=== PATIENT | male | born 1990 | race Caucasian/White ===

== ENCOUNTER → 2022-12-23 13:34 | Outpatient (BNVA) | payer OTHER, SELFPAY | PROVIDERS: Visit Provider Internal Medicine | DX: S29.012A Strain of muscle and tendon of back wall of thorax, initial encounter (principal); S46.819A Strain of other muscles, fascia and tendons at shoulder and upper arm level, unspecified arm, initial encounter; X50.0XXA Overexertion from strenuous movement or load, initial encounter | CPT/HCPCS: 99203 ==

== ENCOUNTER → 2022-12-29 09:20 | Outpatient (BNVA) | payer OTHER, SELFPAY | PROVIDERS: Visit Provider Physician Assistant Medical | DX: S29.012A Strain of muscle and tendon of back wall of thorax, initial encounter (principal); S46.819A Strain of other muscles, fascia and tendons at shoulder and upper arm level, unspecified arm, initial encounter; X50.0XXA Overexertion from strenuous movement or load, initial encounter | CPT/HCPCS: 99213 ==

== ENCOUNTER → 2023-01-02 15:32 | Outpatient (BNVA) | payer OTHER, SELFPAY | PROVIDERS: Visit Provider Internal Medicine | DX: M54.50 Low back pain, unspecified (principal) | CPT/HCPCS: 99213 ==

== ENCOUNTER → 2023-01-09 09:15 | Outpatient (BNVA) | payer SELFPAY | PROVIDERS: Visit Provider Internal Medicine | DX: S29.012A Strain of muscle and tendon of back wall of thorax, initial encounter (principal); S46.819A Strain of other muscles, fascia and tendons at shoulder and upper arm level, unspecified arm, initial encounter; X50.0XXA Overexertion from strenuous movement or load, initial encounter | CPT/HCPCS: 99213 ==

== ENCOUNTER → 2023-09-21 14:12 | Outpatient (BNVA) | payer OTHER, SELFPAY | PROVIDERS: Visit Provider Physician Assistant Medical | DX: K42.9 Umbilical hernia without obstruction or gangrene (principal) | CPT/HCPCS: 99202 ==

== ENCOUNTER 2023-09-30 14:33 | Outpatient (AMB) | payer OTHER, SELFPAY ==
[2023-09-30 14:40] VITALS: BP 143/79; PULSE 94; BMI 33.8
--- NOTE | 2023-09-30 14:40 | A.OFFVIS_ITS ---
Intake Vital Signs 09/30/23 14:40 Height 5 ft 9 in Weight 229 lb BMI 33.8 BP 143/79 H Blood Pressure Location Rt brachial Position Sitting Pulse 94 Intake Visit Reasons: Umbilical hernia Intake Note: Patient referred by Dr. Reed for Umbilical hernia. [facility] US dated Patient c/o: first noticed 09-14-23. Pain worse on Rt abd. 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 It is increasing in size, become more symptomatic. He wished to have this repaired. He has no other GI issues or complaints. He has tolerating a diet. Having regular bowel habits. He has never had such a abdominal wall symptoms before. Chart was reviewed and patient evaluated Physical Exam Vital Signs: Last Vital Signs Pulse 94 09/30/23 14:40 BP 143/79 H 09/30/23 14:40 BMI result Body Mass Index 33.8 Chest Other: Chest breath sounds bilaterally, HS 1 in 2 GI Other: Moderately corpulent abdomen. Patient was examined both supine and standing with Valsalva. Bilateral groin exam negative. Genitalia within normal limits. Approximate 2 cm irreducible/incarcerated umbilical hernia. Very tender to palpation. No evidence of any overlying erythema. Assessment & Plan Assessment & Plan (1) Incarcerated umbilical hernia: Code(s): K42.0 - Umbilical hernia with obstruction, without gangrene Plan Risks, benefits, alternatives of concussion umbilical hernia repair open technique with mesh were reviewed with the patient and included but not limited to bleeding, infection, recurrence, numbness, pain, scarring and the patient wished to proceed. All questions answered. Arrangements were made for this. Coding Level of Care Code New Pt Level 5 (77025) Diagnoses Incarcerated umbilical hernia K42.0
== END 2023-09-30 14:52 | disposition home or self-care (01) ==
PROVIDERS: Referring Provider Internal Medicine; Visit Provider Surgery
DX: K42.0 Umbilical hernia with obstruction, without gangrene (principal)
CPT/HCPCS: 99204

== ENCOUNTER → 2023-09-30 14:33 | Outpatient (BNVA) | payer OTHER, SELFPAY | PROVIDERS: Referring Provider Internal Medicine; Visit Provider Surgery | DX: K42.0 Umbilical hernia with obstruction, without gangrene (principal) | CPT/HCPCS: 99202 ==

== ENCOUNTER 2023-10-23 09:31 | Day surgery (SDC) | payer OTHER, SELFPAY ==
[2023-10-21 10:49] VITALS: BMI 33.8
--- NOTE | 2023-10-22 16:24 | MHC.SHP ---
Pre-Procedural Eval Section A - 24 Hr Update-Section A only Date of Service: 10/22/23 The patient is an INPATIENT: No Changes since office visit: No Cold of Flu in the past 2 weeks, No New Medical Problems, No Changes in Medication and No Patient answered all questions The patient has been examined within 24 hours of the surgical procedure. The History & Physical has been completed within 30 days and I have reviewed it.: Yes Section B - Complete if H&P > 30 days Chief Complaint: Umbilical hernia with obstruction, without gangren Allergies: Allergies Allergy/AdvReac Type Severity Reaction Status Date / Time No Known Allergies Allergy Verified 09/30/23 14:42 Plan I have reviewed the history and physical and performed a pertinent physical examination on my patient. No changes have occurred unless specified. Time Spent With Patient Time: Total time managing care of this patient today ____ minutes.
--- NOTE | 2023-10-22 16:55 | P.OP_ITS ---
Operative Note Operative Note Date of Service: 10/23/23 Narrative: Preoperative diagnosis: [] Incarcerated umbilical hernia Postop diagnosis: [] The same Procedure [] open repair of incarcerated umbilical hernia with Bard mesh Surgeon: [] Timmy Buddhist Monk: [] Jacoby Type of Anesthesia: [] MAC Indication for surgery: [] apProximally 2 cm incarcerated umbilical hernia with omental contents. Moderately corpulent abdomen. Findings: [] Patient brought to the operating room, placed on operative table in supine position, after an adequate level of MAC anesthesia was induced, the patient's abdomen was prepped and draped in usual sterile fashion. Using an infraumbilical incision, this carried down through skin, subcutaneous tissue, where hernia sac was identified and circumferentially dissected down the fascia and dissected off the back of the umbilicus. Sac was opened with incarcerated omental contents and sac amputated. Proximally 2 cm defect was circumferentially cleared. A Bard mesh was placed in this defect, and the superficial layer of the mesh was circumferentially sutured to the surrounding fascia using interrupted 0 Ethibond suture. At completion of procedure, mesh was in good very good position with no gaps or tension. Wound was irrigated, secured hemostasis. It Was closed in the following manner; posterior aspect of the umbilicus was tacked to the wound floor using interrupted 3-0 Vicryl sutures. Skin was closed using interrupted inverted dermal 3-0 Vicryl sutures followed by Steri-Strips and sterile dressings. Wound was infiltrated to beginning at the end of the case with 0.5% Marcaine/1 % lidocaine. Sponge, needle, and instrument counts were reported correct. Patient tolerated the procedure well and emerged from anesthesia stable condition. EBL minimal
[2023-10-23] VITALS (9 sets, daily range): BP systolic 107–138; BP diastolic 64–80; PULSE 58–79; RESP 12–16; TEMP 36.8–37; O2SAT 94–97; BMI 34.7
[2023-10-23] MEDS: Lactated Ringers 1,000 ML 100 ML IVCONT (10:33)
--- NOTE | 2023-10-23 10:35 | HO.ANESPROP2 ---
Documented by User: Natalya Upton NP 10/21/23 14:33 HPI - Anesthesia Eval Consult details Narrative: 33yo M for OPEN Incarcerated Hernial Umbilical with mesh PMFSH Active Problems Active Problems: All Active Problems (Updated 10/21/23 @ 10:51 by Brandie Huang RN) Incarcerated umbilical hernia (Acute) Past Medical History Medical History (Updated 10/21/23 @ 10:49 by Brandie Huang RN) Incarcerated umbilical hernia Surgical History Surgical History (Updated 10/23/23 @ 10:14 by Marissa Haro RN) Hx of esophagogastroduodenoscopy History of facial surgery Social History Social History Patient Tobacco Use Status: Never used Tobacco Use of substances other than those prescribed or required for medical reasons: No Are you DNR?: No Advance Directives: No Advance Directives Information Provided: Yes Meds Allergies Allergy/AdvReac Type Severity Reaction Status Date / Time No Known Allergies Allergy Verified 10/23/23 10:11 Exam Height,Weight and Vital Signs: Height 5 ft 9 in Weight 103.873 kg Assessment and Plan Assessment Anesthesia Assessment: Chart Reviewed Documented by User: Thao Davila DO 10/23/23 10:37 PMFSH Past Medical History Medical History (Updated 10/21/23 @ 10:49 by Brandie Huang RN) Incarcerated umbilical hernia Family History Family history of problems with anesthesia: No Surgical History Surgical History (Updated 10/23/23 @ 10:14 by Marissa Haro RN) Hx of esophagogastroduodenoscopy History of facial surgery History of Problems with Anesthesia: No Social History Social History Patient Tobacco Use Status: Never used Tobacco Use of substances other than those prescribed or required for medical reasons: No Are you DNR?: No Advance Directives: No Advance Directives Information Provided: Yes Meds Allergies Allergy/AdvReac Type Severity Reaction Status Date / Time No Known Allergies Allergy Verified 10/23/23 10:11 Exam Exam Date and Time: October 23, 2023 1035 Height,Weight and Vital Signs: Height 5 ft 9 in Weight 103.873 kg Height 5 ft 9 in Weight 106.594 kg Vital Signs Temperature 98.6 F 10/23/23 10:17 Pulse Rate 79 10/23/23 10:17 Respiratory Rate 16 10/23/23 10:17 Blood Pressure 138/80 10/23/23 10:17 Pulse Oximetry 94 10/23/23 10:17 Oxygen Delivery Method Room Air 10/23/23 10:17 Temperature 98.6 F 10/23/23 10:17 Pulse Rate 79 10/23/23 10:17 Respiratory Rate 16 10/23/23 10:17 Blood Pressure 138/80 10/23/23 10:17 Pulse Oximetry 94 10/23/23 10:17 Oxygen Delivery Method Room Air 10/23/23 10:17 Airway Mallampati Class: II TM Dist: >3cm Neck ROM: Full Loose/Missing/Broken Teeth: No Heart: S1S2 Lungs: CTAB Assessment and Plan Assessment Anesthesia Assessment: Anesthesia Plan Discussed and Chart Reviewed Final Anesthetic Review Family History of Problems with Anesthesia: No History of Problems with Anesthesia: No NPO: Yes ASA Class: I Final Preanesthetic Review: No Changes in Pt Med Stat, Meds/Allgs Chart Reviewed, Consent Obtained/Reviewed and Anes Risks/Benef Reviewed Patient Risk: Low Procedure Risk: Low Anesthetic Plan Anesthetic Plan: MAC: and Agree w/ Assess. and Plan Disposition: Standard PACU
[2023-10-23] MEDS: oxyCODONE HCl Immed Release 5 MG TABLET 10 MG PO (11:47)
[2023-10-23] MEDS: fentaNYL citrate/PF 100 MCG/2 ML VIAL 50 MCG IVPUSH ×2 (11:47→11:59)
== END 2023-10-23 13:20 | disposition home or self-care (01) ==
LOC: HO.SSS 09:31
PROVIDERS: PCP Pediatrics; Visit Provider Surgery
PROC: (CPT 49592; principal; 2023-10-23 11:00)
DX: K42.0 Umbilical hernia with obstruction, without gangrene (principal)
CPT/HCPCS: 49592; 88304; C1781; J0690; J1100; J1885; J2250; J2405; J2704; J2795; J3010

== ENCOUNTER → 2023-10-23 09:31 | Outpatient (BNV) | payer OTHER, SELFPAY | PROVIDERS: PCP Pediatrics; Visit Provider Surgery | DX: K42.0 Umbilical hernia with obstruction, without gangrene (principal) | CPT/HCPCS: 49592 ==

== ENCOUNTER 2023-11-02 11:29 | Outpatient (AMB) | payer OTHER, SELFPAY ==
[2023-11-02 11:34] VITALS: BP 147/86; PULSE 98
--- NOTE | 2023-11-02 11:34 | MHC.OFFVIS ---
Intake Vital Signs 11/02/23 11:34 Weight 233 lb BP 147/86 H Blood Pressure Location Rt brachial Position Sitting Pulse 98 Intake Visit Reasons: S/P umbilical hernia w/mesh Intake Note: Patient here s/p umbilical hernia w/mesh repair. Reports incisions healing well. Patient c/o: steri strips fell off, itch. Sx: 10-23-23. Top Spotter Required: No Accompanied by: Self / Same As Patient Allergies No Known Allergies Allergy (Verified 11/02/23 11:35) HPI HPI Comments History of Present Illness Details Patient presents for follow-up. He has no wound issues or complaints. He has tolerating a diet. He is having regular bowel habits. He is ambulating with minimal assistance. He has not done any heavy lifting , as instructed. [facility] Surgical History Incarcerated umbilical hernia (10/23/23) Hx of esophagogastroduodenoscopy History of facial surgery Social History Patient Tobacco Use Status: Never used Tobacco Physical Exam Vital Signs: Last Vital Signs Pulse 98 11/02/23 11:34 BP 147/86 H 11/02/23 11:34 GI Other: Abdomen is soft. Wound clean dry and intact. Assessment & Plan Assessment & Plan (1) Status post hernia repair: Code(s): Z98.890 - Other specified postprocedural states; Z87.19 - Personal history of other diseases of the digestive system Plan Patient has been given local instructions, and will follow-up p.r.n.. We will have him commence work where he does very significant heavy lifting in 1 month's time with 2 weeks light duty when he starts. Coding Level of Care Code Global (91709) Diagnoses Status post hernia repair Z98.890; Z87.19
== END 2023-11-02 11:46 | disposition home or self-care (01) ==
LOC: HO.HGS 11:30
PROVIDERS: PCP Pediatrics; Visit Provider Surgery
DX: Z09 Encounter for follow-up examination after completed treatment for conditions other than malignant neoplasm (principal); K42.0 Umbilical hernia with obstruction, without gangrene
CPT/HCPCS: 99212

== ENCOUNTER → 2023-11-02 11:30 | Outpatient (BNVA) | payer OTHER, SELFPAY | PROVIDERS: PCP Pediatrics; Visit Provider Surgery | DX: Z09 Encounter for follow-up examination after completed treatment for conditions other than malignant neoplasm (principal); Z87.19 Personal history of other diseases of the digestive system | CPT/HCPCS: 99212 ==

== ENCOUNTER → 2024-01-20 08:40 | Outpatient (BNVA) | payer OTHER, SELFPAY | PROVIDERS: PCP Pediatrics; Visit Provider Internal Medicine | DX: N50.812 Left testicular pain (principal) | CPT/HCPCS: 76870; 93975; 99203 ==

== ENCOUNTER → 2024-01-25 10:11 | Outpatient (BNVA) | payer OTHER, SELFPAY | PROVIDERS: PCP Pediatrics | DX: Z02.6 Encounter for examination for insurance purposes (principal) ==

== ENCOUNTER 2024-01-27 08:32 | Outpatient (AMB) | payer OTHER, SELFPAY ==
--- NOTE | 2024-01-27 08:39 | MHC.OFFVIS ---
Vital Signs 01/27/24 08:40 Weight 233 lb BP 136/77 Blood Pressure Location Rt brachial Position Sitting Pulse 67 Intake Visit Reasons: Hernia Intake Note: Patient here to discuss new hernia. HX of incarcerated umbilical hernia repair on 10-23-23. Patient c/o: lower abdominal pain. 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 He was doing heavy lifting approximate week or so ago at his place of employment and developed right groin severe pain and a lump. Because of persistence of symptoms, he presents here for further evaluation. Patient is known to me from the past. Incidentally, patient was also to be seen by Urology for unrelated issues of varicocele and epididymal cyst. Chart was reviewed and patient evaluated [facility] Surgical History Incarcerated umbilical hernia (10/23/23) Hx of esophagogastroduodenoscopy History of facial surgery Social History Patient Tobacco Use Status: Never used Tobacco Physical Exam Vital Signs: Last Vital Signs Pulse 67 01/27/24 08:40 BP 136/77 01/27/24 08:40 Chest Other: Chest breath sounds bilaterally, HS 1 in 2 GI Other: Patient was examined both supine and standing with Valsalva. Abdomen mildly corpulent, benign. Status post inguinal hernia repair well healed. Left groin negative. Genitalia grossly within normal limits. Reducible moderately sized right inguinal hernia Assessment & Plan Assessment & Plan (1) Right inguinal hernia: Code(s): K40.90 - Unilateral inguinal hernia, without obstruction or gangrene, not specified as recurrent Category: Surgical Plan Patient would like to undergo repair of his symptomatic right inguinal hernia. Risks, benefits, alternatives of open right inguinal hernia repair with mesh were reviewed with the patient included but not limited to bleeding, infection, recurrence, numbness, pain, scarring and the patient was to proceed. All questions answered. Arrangements were made for this. Coding Level of Care Code New Pt Level 5 (38560) Diagnoses Right inguinal hernia K40.90
[2024-01-27 08:40] VITALS: BP 136/77; PULSE 67
== END 2024-01-27 08:47 | disposition home or self-care (01) ==
LOC: HO.HGS 08:32
PROVIDERS: PCP Pediatrics; Visit Provider Surgery
DX: K40.90 Unilateral inguinal hernia, without obstruction or gangrene, not specified as recurrent (principal)
CPT/HCPCS: 99214

== ENCOUNTER → 2024-01-27 08:32 | Outpatient (BNVA) | payer BC, SELFPAY | PROVIDERS: PCP Pediatrics; Visit Provider Surgery | DX: K40.90 Unilateral inguinal hernia, without obstruction or gangrene, not specified as recurrent (principal) | CPT/HCPCS: 99212 ==

== ENCOUNTER 2024-03-09 10:09 | Outpatient (AMB) | payer BC, SELFPAY ==
--- NOTE | 2024-03-09 10:14 | MHC.OFFVIS ---
Intake Visit Reasons: vericocele/hydrocele/Low Testosterone/Erectile Dys Intake Note: Patient is present for vericocele/hydrocele/low testosterone,erectile dys Urology Medication:none Antibiotic Allergy:none Blood Thinner:none Certified Medical Records Coder Required: No Allergies No Known Allergies Allergy (Verified 03/09/24 10:16) HPI Comments Details: Thierry is a pleasant male. He is a patient of Dr. Barrera. He is seen for the following urologic conditions. - varicocele - male infertility - premature ejaculation Varicocele Upcoming left inguinal hernia repair Has right epididymal cyst on ultrasound which is stable Moderate varicocele on ultrasound Clinically grade 1 varicocele No associated continuous pain Discussed role of varicocele in male infertility. One in 6 men have a clinical varicocele. Only 1 in 6 of these suffer from infertility. Male fertility Has been trying to conceive with girlfriend They do not use any timing information such as basal temperature monitoring Printed information provided regarding estrogen cycle and days of ovulation He also only recently stopped marijuana use Premature ejaculation Progressive States he only lasts for 1-2 minutes with vaginal penetration Discussed treatment with either threshold masturbation techniques and or [place] duration for penile numbing Would like to try on demand Cialis which can also be useful PFSH Surgical History Incarcerated umbilical hernia (10/23/23) Hx of esophagogastroduodenoscopy History of facial surgery Social History Patient Tobacco Use Status: Never used Tobacco Review of Systems Const Denies chills and Denies fever(s) Card Reports no additional complaints and Denies syncope Resp Denies cough GI Denies abdominal pain and Denies heartburn Reports as per HPI and Denies change in libido Neuro Denies syncope Psych Denies change in libido Endo Denies change in libido Physical Exam Const General: cooperative, healthy appearing, comfortable and no acute distress Orientation/consciousness: patient oriented x3 HEENT Face and sinus: Yes normal facial exam Mouth: moist mucous membranes Neck Neck: Yes normal visual inspection, Yes full ROM and Yes trachea midline Chest Chest palpation & inspection: normal inspection of the chest Resp Effort & Inspection: normal respiratory effort, able to speak in complete sentences and no respiratory distress GI Inspection: Yes normal to inspection Back/Spine/Pelvis Cervical Spine: normal cervical lordosis Thoracic/Lumbar Spine: thoracic and lumbar spine normal to inspection Skin General skin exam: no rashes or lesions noted Neuro General: patient oriented x3, gait normal, tone normal and moves all extremities Extrem General: Yes normal to inspection and Yes capillary refill normal Assessment & Plan Assessment & Plan (1) Premature ejaculation: Code(s): F52.4 - Premature ejaculation Category: Medical (2) Male infertility: Code(s): N46.9 - Male infertility, unspecified Category: Medical (3) Varicocele: Code(s): I86.1 - Scrotal varices Category: Medical Plan Three month follow-up labs Trial tadalafil on demand Orders: Orders Testosterone, Free/Total 3 Months N46.9 - Male infertility, unspecified Medications: New tadalafil as needed 10 mg PO ONCE 30 days PRN 30 tabs 1RF sexual activity F52.4 - Premature ejaculation, N52.9 - Male erectile dysfunction, unspecified Patient Instructions: Imaging studies, laboratory and physical exam results were discussed and reviewed in detail. No major barriers to patient understanding were identified. An opportunity to ask questions regarding the treatment plan was provided. All questions were answered. The patient expressed understanding and agreement with the above treatment plan. The patient is aware they should contact our office by phone for worsening of their current condition or the appearance of new urologic symptoms. Compliance is encouraged with any medications and followup testing that is ordered. It is a privilege to participate in the urologic care of your patient. If you have any questions or concerns regarding treatment for the above conditions, or other urologic issues, please do not hesitate to contact me. The office telephone contact is [phone]. This note is constructed using voice recognition software. While every effort has been made to ensure accuracy dining car waiter/waitress errors may have been included. Yours sincerely, Dr Valerio Jenkins MD, [facility] - Urology Providers of Expert, Compassionate Care for the Genitourinary System Coding Level of Care Code New Pt Level 4 (44010) Diagnoses Premature ejaculation F52.4 Male infertility N46.9 Varicocele I86.1
== END 2024-03-09 10:45 | disposition home or self-care (01) ==
PROVIDERS: PCP Pediatrics; Visit Provider Urology
DX: F52.4 Premature ejaculation (principal); N46.9 Male infertility, unspecified; I86.1 Scrotal varices
CPT/HCPCS: 99204

== ENCOUNTER → 2024-03-09 10:09 | Outpatient (BNVA) | payer BC, SELFPAY | PROVIDERS: PCP Pediatrics; Visit Provider Urology ==

== ENCOUNTER 2024-03-17 08:02 | Day surgery (SDC) | payer OTHER, BC, SELFPAY ==
[2024-03-15 10:44] VITALS: BMI 34.0
--- NOTE | 2024-03-15 14:15 | HO.ANESPROP2 ---
Documented by User: Natalya Upton NP 03/15/24 14:15 HPI - Anesthesia Eval Consult details Narrative: 34yo M for Right Open Hernia Inguinal Reducible with mesh s/p umbilical hernia 10/2023 with TIVA PMFSH Active Problems Active Problems: All Active Problems Premature ejaculation (Acute) Male infertility (Acute) Varicocele (Acute) Right inguinal hernia (Acute) Testicle pain (Acute ~01/19/24) Status post hernia repair (Acute) Incarcerated umbilical hernia (Acute 10/23/23) Past Medical History Medical History Left varicocele Anxiety ADHD (attention deficit hyperactivity disorder) Epididymal cyst GERD (gastroesophageal reflux disease) Family History Family history of problems with anesthesia: No Surgical History Surgical History Hx of esophagogastroduodenoscopy History of facial surgery Incarcerated umbilical hernia (10/23/23) History of Problems with Anesthesia: No Social History Social History Patient Tobacco Use Status: Never used Tobacco Use of substances other than those prescribed or required for medical reasons: No Are you DNR?: No Advance Directives: No Advance Directives Information Provided: Yes Meds Allergies Allergy/AdvReac Type Severity Reaction Status Date / Time No Known Allergies Allergy Verified 03/17/24 08:17 Exam Height,Weight and Vital Signs: Height 5 ft 9 in Weight 104.326 kg Assessment and Plan Assessment Anesthesia Assessment: Chart Reviewed Final Anesthetic Review Family History of Problems with Anesthesia: No History of Problems with Anesthesia: No Documented by User: Anju Keith MD 03/17/24 11:32 PMFSH Past Medical History Medical History Left varicocele Anxiety ADHD (attention deficit hyperactivity disorder) Epididymal cyst GERD (gastroesophageal reflux disease) Surgical History Surgical History Hx of esophagogastroduodenoscopy History of facial surgery Incarcerated umbilical hernia (10/23/23) Social History Social History Patient Tobacco Use Status: Never used Tobacco Use of substances other than those prescribed or required for medical reasons: No Are you DNR?: No Advance Directives: No Advance Directives Information Provided: Yes Meds Allergies Allergy/AdvReac Type Severity Reaction Status Date / Time No Known Allergies Allergy Verified 03/17/24 08:17 Exam Airway Mallampati Class: II TM Dist: >3cm Neck ROM: Full Heart: rrrt Lungs: cta Assessment and Plan Assessment Anesthesia Assessment: Anesthesia Plan Discussed Final Anesthetic Review NPO: Yes ASA Class: II Final Preanesthetic Review: No Changes in Pt Med Stat, Meds/Allgs Chart Reviewed, Consent Obtained/Reviewed and Anes Risks/Benef Reviewed Patient Risk: Low Procedure Risk: Low Anesthetic Plan Anesthetic Plan: GA Disposition: Standard PACU
--- NOTE | 2024-03-16 09:56 | P.HPSUR_ITS ---
Pre-Procedural Eval Section A - 24 Hr Update-Section A only Date of Service: 03/17/24 The patient is an INPATIENT: No Changes since office visit: No Cold of Flu in the past 2 weeks, No New Medical Problems, No Changes in Medication and No Patient answered all questions The patient has been examined within 24 hours of the surgical procedure. The History & Physical has been completed within 30 days and I have reviewed it.: No Section B - Complete if H&P > 30 days Chief Complaint: Unilateral inguinal hernia, without obstruction or Allergies: Allergies Allergy/AdvReac Type Severity Reaction Status Date / Time No Known Allergies Allergy Verified 03/09/24 10:16 Review of Systems Sugical H&P ROS: Negative: Constitution, Cardiovascular, Respiratory, Neurological, Psychiatric, Hem-Onc, Allergic/Immunologic, Gastrointestinal, Genitourinary, Musculoskeletal, Integumentary, Endocrine and Eyes/Ears/Nose/Thr oat Exam Surgical H&P Exam: Normal: HEENT, Normal: Heart, Normal: Lungs, Normal: Extremities, Normal: Abdomen, Normal: Skin and Normal: Neurological Plan I have reviewed the history and physical and performed a pertinent physical examination on my patient. No changes have occurred unless specified. Time Spent With Patient Time: Total time managing care of this patient today ____ minutes.
[2024-03-17] VITALS (8 sets, daily range): BP systolic 125–147; BP diastolic 79–97; PULSE 63–87; RESP 16–18; TEMP 36.1–36.2; O2SAT 95–98; BMI 32.5
[2024-03-17] MEDS: Lactated Ringers 1,000 ML 100 ML IVCONT (08:51)
[2024-03-17] MEDS: fentaNYL citrate/PF 100 MCG/2 ML VIAL 25 MCG IVPUSH ×2 (13:05→13:10)
--- NOTE | 2024-03-18 13:01 | W.PM.OPN ---
Operative Note Operative Note Date of Service: 03/17/24 Narrative: Preoperative diagnosis: [] Symptomatic right inguinal hernia Postop diagnosis: [] The same Procedure [] open right inguinal herniorrhaphy with Bard mesh Surgeon: [] Timmy Public Health Professor: [] Jacoby Type of Anesthesia: [] General Indication for surgery: [] Moderately sized indirect right inguinal hernia. Findings: [] Patient brought to the operating room, placed on operative table in supine position, after an adequate level of general anesthesia was induced, the right groin was prepped and draped in usual sterile fashion. Using a small right para inguinal incision, this carried down through skin, subcutaneous tissue, Libia's fascia. External oblique fibers were opened their direction with care to isolate and preserve the ilioinguinal nerve throughout the procedure. Spermatic cord was identified and retracted from the field. No direct hernia was demonstrated. Exploration of the cord demonstrated moderate-sized indirect hernia sac which was reduced. A Bard plug was placed in the indirect defect, and sutured inferiorly to the inguinal ligament, and superiorly to the transversalis fascia using interrupted 0 Ethibond suture. At completion of procedure, mesh was in good position also covered the inguinal floor and was was under no tension. Wound was irrigated, secured hemostasis, and closed in the following manner; external oblique fascia was closed using running 2-0 Vicryl suture. Libia's fascia was reapproximated using interrupted 3-0 Vicryl suture. Interrupted inverted deep dermal 3-0 Vicryl sutures followed by running subcuticular 4-0 Vicryl sutures were placed. Steri-Strips and sterile dressings were applied. Wound was infiltrated 0.5% Marcaine at completion. Sponge, needle, and instrument counts reported correct. Patient tolerated the procedure well and emerged from anesthesia stable condition. EBL minimal. Ipsilateral testicle was intrascrotal at completion.
== END 2024-03-17 13:42 | disposition home or self-care (01) ==
PROVIDERS: PCP Pediatrics; Visit Provider Surgery
PROC: (CPT 49505; principal; 2024-03-17 11:30)
DX: K40.90 Unilateral inguinal hernia, without obstruction or gangrene, not specified as recurrent (principal); Z87.19 Personal history of other diseases of the digestive system; Z98.890 Other specified postprocedural states
CPT/HCPCS: 49505; C1781; J0131; J0690; J1885; J2250; J2704; J2795; J3010

== ENCOUNTER → 2024-03-17 08:02 | Outpatient (BNV) | payer BC, SELFPAY | PROVIDERS: PCP Pediatrics; Visit Provider Surgery | DX: K40.90 Unilateral inguinal hernia, without obstruction or gangrene, not specified as recurrent (principal) | CPT/HCPCS: 49505 ==

== ENCOUNTER 2024-03-28 08:56 | Outpatient (AMB) | payer OTHER, SELFPAY ==
--- NOTE | 2024-03-28 09:02 | A.OFFVIS_ITS ---
Vital Signs 03/28/24 09:15 Weight 220 lb BP 126/76 Blood Pressure Location Lt brachial Intake Visit Reasons: S/P RIH w/mesh Intake Note: Pt states, I still get shooting pains down into my groin. 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 Aside from incisional discomfort which is improving he is otherwise doing well. Tolerating his diet. Having regular bowel habits. He is increasing his activity level. [facility] Medical History Left varicocele Anxiety ADHD (attention deficit hyperactivity disorder) Epididymal cyst GERD (gastroesophageal reflux disease) Surgical History (Updated 03/28/24 @ 09:23 by Renny Warner MD) Status post hernia repair Right inguinal hernia (03/17/24) Hx of esophagogastroduodenoscopy History of facial surgery Incarcerated umbilical hernia (10/23/23) Social History Comment: counts correct Patient Tobacco Use Status: Never used Tobacco Physical Exam Vital Signs: Last Vital Signs BP 126/76 03/28/24 09:15 GI Other: Abdomen is soft incision clean dry and intact well healed Assessment & Plan Assessment & Plan (1) Status post hernia repair: Code(s): Z98.890 - Other specified postprocedural states; Z87.19 - Personal history of other diseases of the digestive system Category: Surgical Plan Patient was given local instructions, a note for work for 4 weeks off in 3 weeks light duty end, we will otherwise follow-up p.r.n.. All questions answered. Coding Level of Care Code Global (67926) Diagnoses Status post hernia repair Z98.890; Z87.19
[2024-03-28 09:15] VITALS: BP 126/76
== END 2024-03-28 09:24 | disposition home or self-care (01) ==
PROVIDERS: PCP Pediatrics; Visit Provider Surgery
DX: Z98.890 Other specified postprocedural states (principal); Z87.19 Personal history of other diseases of the digestive system
CPT/HCPCS: 99024

== ENCOUNTER → 2024-03-28 08:56 | Outpatient (BNVA) | payer OTHER, SELFPAY | PROVIDERS: PCP Pediatrics; Visit Provider Surgery | DX: Z09 Encounter for follow-up examination after completed treatment for conditions other than malignant neoplasm (principal); Z87.19 Personal history of other diseases of the digestive system | CPT/HCPCS: 99212 ==

== ENCOUNTER → 2024-04-28 10:59 | Outpatient (BNVA) | payer OTHER, SELFPAY | PROVIDERS: PCP Pediatrics; Visit Provider Surgery | DX: Z48.00 Encounter for change or removal of nonsurgical wound dressing (principal) | CPT/HCPCS: 99211 ==

== ENCOUNTER 2024-05-10 08:10 | Outpatient (AMB) | payer OTHER, SELFPAY ==
--- NOTE | 2024-05-10 08:20 | A.OFFVIS_ITS ---
Vital Signs 05/10/24 08:30 Weight 220 lb BP 126/82 Blood Pressure Location Rt brachial Position Sitting Pulse 72 Intake Visit Reasons: pain at hernia site surg 03/17/24 Intake Note: Patient scheduled for wound check on [facility] site. Patient c/o: pain on left lower abdomen. States has new third hernia after lifting heavy equipment at work. Tylenol not helping. SX: 03-17-24. Earrings Fabricator Required: No Accompanied by: Self / Same As Patient Allergies No Known Allergies Allergy (Verified 03/28/24 09:03) HPI Comments Details: Patient was status post right inguinal hernia repair. He is doing quite well from this. He is tolerating a diet. Having regular bowel habits. He is increasing his activity level. He returned to work and developed a left groin strain. Patient does significant heavy lifting at his place of employment. He was doing such a maneuver when he developed the left groin symptoms. [facility] Medical History Left varicocele Anxiety ADHD (attention deficit hyperactivity disorder) Epididymal cyst GERD (gastroesophageal reflux disease) Surgical History (Updated 05/10/24 @ 09:04 by Renny Warner MD) Status post hernia repair Right inguinal hernia (03/17/24) Hx of esophagogastroduodenoscopy History of facial surgery Incarcerated umbilical hernia (10/23/23) Social History Comment: counts correct Patient Tobacco Use Status: Never used Tobacco Physical Exam Vital Signs: Last Vital Signs Pulse 72 05/10/24 08:30 BP 126/82 05/10/24 08:30 GI Other: Patient was examined supine and standing with Valsalva. Hernia wound well healed. Abdomen mildly corpulent, benign. Patient has a small left inguinal hernia. Assessment & Plan Assessment & Plan (1) Left inguinal hernia: Code(s): K40.90 - Unilateral inguinal hernia, without obstruction or gangrene, not specified as recurrent Category: Surgical (2) Postop check: Code(s): Z09 - Encounter for follow-up examination after completed treatment for conditions other than malignant neoplasm Category: Surgical Plan At present, would treat the patient conservatively and continue his convalescence from the surrounding hernia repair. He will be given few days off from work and then light duty and he will see me after this. All questions answered. Coding Level of Care Code Est Pt Level 4 (85417) Global (16177) Diagnoses Left inguinal hernia K40.90 Postop check Z09
[2024-05-10 08:30] VITALS: BP 126/82; PULSE 72
== END 2024-05-10 08:40 | disposition home or self-care (01) ==
PROVIDERS: PCP Pediatrics; Visit Provider Surgery
DX: K40.90 Unilateral inguinal hernia, without obstruction or gangrene, not specified as recurrent (principal); Z09 Encounter for follow-up examination after completed treatment for conditions other than malignant neoplasm
CPT/HCPCS: 99024

== ENCOUNTER → 2024-05-10 08:10 | Outpatient (BNVA) | payer OTHER, SELFPAY | PROVIDERS: PCP Pediatrics; Visit Provider Surgery | DX: Z48.815 Encounter for surgical aftercare following surgery on the digestive system (principal) | CPT/HCPCS: 99212 ==

== ENCOUNTER 2024-05-31 09:39 | Outpatient (AMB) | payer BC, SELFPAY ==
--- NOTE | 2024-05-31 10:01 | A.OFFVIS_ITS ---
Vital Signs 05/31/24 10:04 Weight 219 lb BP 147/80 H Blood Pressure Location Rt brachial Position Sitting Pulse 80 Intake Visit Reasons: 3 wk follow up pain at hernia site surg 03/17/24 Intake Note: Patient being seen as an urgent appointment this morning. Patient c/o: severe abdominal pain. States hernia grew back. Road Equipment Operator Required: No Accompanied by: Self / Same As Patient Allergies No Known Allergies Allergy (Verified 05/31/24 10:06) HPI Comments Details: Patient presents here with what he is describing as pain in his lower back radiating down the back of his left left groin to make sure this was not a hernia. leg. It has been going on for several weeks time. He has never seen anyone for this but has been told he has ?sciatica?. Presents here for evaluation of his left groin to make sure this is not a hernia. In the meantime, patient is tolerating a diet. Having regular bowel habits. No other GI issues or complaints. [facility] Medical History Left varicocele Anxiety ADHD (attention deficit hyperactivity disorder) Epididymal cyst GERD (gastroesophageal reflux disease) Surgical History Status post hernia repair Right inguinal hernia (03/17/24) Hx of esophagogastroduodenoscopy History of facial surgery Incarcerated umbilical hernia (10/23/23) Social History Comment: counts correct Patient Tobacco Use Status: Never used Tobacco Physical Exam Vital Signs: Last Vital Signs Pulse 80 05/31/24 10:04 BP 147/80 H 05/31/24 10:04 Const Other: Patient is in obvious distress secondary to what he is describing a sciatica pain of his left lower extremity GI Other: Patient was evaluated supine and standing with Valsalva. Status post prior right inguinal and right umbilical hernia repairs. Wounds well healed. Abdomen corpulent, benign. Left groin demonstrates at best a very small left inguinal hernia but this is unlikely to be related to his leg symptoms. Extrem Other: Limited neuro exam demonstrates possibly a left footdrop and definitely weakness of the left lower extremity. It is grossly neurovascularly intact. Assessment & Plan Assessment & Plan (1) Sciatica of left side: Code(s): M54.32 - Sciatica, left side Category: Surgical Plan Patient was reassured he has no significant left inguinal hernia. Because of his significant leg symptoms and question of his adequate, current plan is to refer him to Neurosurgery and direct further interventions and studies per their evaluation. Patient will otherwise follow-up with me p.r.n.. All questions answered. Coding Level of Care Code Est Pt Level 4 (61950) Diagnoses Sciatica of left side M54.32
[2024-05-31 10:04] VITALS: BP 147/80; PULSE 80
== END 2024-05-31 10:12 | disposition home or self-care (01) ==
PROVIDERS: PCP Pediatrics; Visit Provider Surgery
DX: M54.32 Sciatica, left side (principal)
CPT/HCPCS: 99213

== ENCOUNTER → 2024-05-31 09:39 | Outpatient (BNVA) | payer OTHER, SELFPAY | PROVIDERS: PCP Pediatrics; Visit Provider Surgery ==

== ENCOUNTER → 2024-06-03 12:54 | Outpatient (BNVA) | payer OTHER, SELFPAY | PROVIDERS: PCP Pediatrics; Visit Provider Physician Assistant | DX: M54.42 Lumbago with sciatica, left side (principal) | CPT/HCPCS: 72100; 99215 ==

== ENCOUNTER → 2024-06-10 13:15 | Outpatient (BNVA) | payer OTHER, SELFPAY | PROVIDERS: PCP Pediatrics; Visit Provider Physician Assistant | DX: M54.42 Lumbago with sciatica, left side (principal); R20.2 Paresthesia of skin; M21.372 Foot drop, left foot | CPT/HCPCS: 99214 ==

== ENCOUNTER → 2024-06-15 12:21 | Outpatient (BNVA) | payer OTHER, SELFPAY | PROVIDERS: PCP Pediatrics; Visit Provider Physician Assistant | DX: M54.42 Lumbago with sciatica, left side (principal) | CPT/HCPCS: 99204 ==

== ENCOUNTER → 2024-06-24 13:33 | Outpatient (BNVA) | payer OTHER, SELFPAY | PROVIDERS: PCP Pediatrics; Visit Provider Physician Assistant | DX: M54.42 Lumbago with sciatica, left side (principal) | CPT/HCPCS: 99213 ==

== ENCOUNTER 2025-05-02 17:34 | Emergency (ER) | payer SELFPAY ==
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
[2025-05-02 17:56] VITALS: BP 164/76; PULSE 65; RESP 16; TEMP 36; O2SAT 97; BMI 32.5
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
--- OUTSIDE RECORDS SUMMARY | 2025-05-02 19:50 | XMS_ITS | Clinical Summary ---
Author Organization [facility] [address] [facility] [address] Address [address] [place] [address] Phone Care Team Providers Care Special Delivery Clerk Name Role Phone Spring Barrera MD Primary Care Provider [phone] Allergies No known active allergies Medications acetaminophen (TYLENOL) 325 mg tablet Take 2 Tablets by mouth every 6 hours as needed. Active Active Problems Problem Noted Date Diagnosed Date Erectile dysfunction 11/29/2019 Low testosterone 11/25/2019 ADHD (attention deficit hyperactivity disorder) 09/16/2014 Allergic rhinitis 09/16/2014 Anxiety 09/16/2014 GERD (gastroesophageal reflux disease) 5 Overview (09/19/2024): EGD Gastritis 11/07 Immunizations Name Administration Dates Next Due DTaP (Infanrix) 6wks to less than 7yo ,10/30/1993,01/31/1993,10/23,1992 HCqY-QRO-FLP (Pentacel) 2mo to less than 5yo 04/29/1993,01/31/1993,1992,05/17 Hepatitis B Pediatric (Enger ix B; Recombivax HB) to less than 20 yo 1992,1992,1992 MMR, measles mumps and rubel la Live (Priorix; M-M-R II) 12mo and older 03/17/1997,04/29/1993 Meningococcal MCV4P 01/11/2010 OPV 04/07/1996, 4,1992,05/17 Td Tetanus diptheria (Tdvax) 7yo and older 01/11/2010,03/13/2003 Surgical History Surgery Date Site/Laterality Comments TONSILLECTOMY PROCEDURE: HISTORICAL TONSILLECTOMY WISDOM TOOTH EXTRACTION PROCEDURE: HISTORICAL WISDOM TEETH EXTRACTION Medical History Medical History Date Comments GERD (gastroesophageal reflux disease) 09/16/2014 DX:GERD (gastroesophageal reflux disease) ADHD (attention deficit hype ractivity disorder) 09/16/2014 DX:ADHD (attention deficit hyperactivity disorder) Allergic rhinitis 09/16/2014 DX:Allergic rh initis Anxiety 09/16/2014 DX:Anxiety Family History Medical History Relation Name Comments Schizophrenia Brother 1 Breast cancer Grandparent 1 Multiple sclerosis Mother Relation Name Status Comments Brother 1 Brother 2 Grandparent 1 Grandparent 2 Mother Social History Tobacco Use Types Packs/Day Years Used Date Smoking Tobacco: Former Alcohol Use Standard Drinks/Week Comments Not Currently 0 (1 standard drink = 0.6 oz pur e alcohol) Sex and Gender Information Value Date Recorded Sex Assigned at Not on file Legal Sex Male 10:17 AM EST Gender Identity Not on file Sexual Orientation Not on file Obstetrics History Last Filed Vital Signs Vital Sign Reading Time Taken Comments Blood Pressure 111/71 06/01/2024 3:16 PM EDT Pulse 82 06/01/2024 3:16 PM EDT Temperature - - Respiratory Rate - - Oxygen Saturation - - Inhaled Oxygen Concentration - - Weight 103 kg (227 lb 6.4 oz) 02/19/2024 4:35 PM EDT Height 180.3 cm (5' 11 ) 02/19/2024 4:35 PM EDT Body Mass Index 31.72 02/19/2024 4:35 PM EDT Plan of Treatment Health Maintenance Due Date Last Done Comments Hepatitis B Vaccines (3 of 3 - 3-dose series) 02/19/1993 1992, 1992, 1992 DTaP,Tdap,and Td Vaccines (8 - Td or Tdap) 01/12/2020 01/11/2010, 03/13/2003, 04/07/1996, Additional history exists HIV Screening 03/08/2024 Hepatitis C Screening 03/08/2024 Social Influencers of Health Screening 03/08/2024 Depression Screening 08/17/2024 COVID-19 Vaccine ( season) 2025 Influenza Vaccine (#1) 2025 HIB Vaccines Completed 04/29/1993, 01/15, 1992, Additional history exists IPV Vaccines Completed 04/07/1996, 10/15, 04/29/1993, Additional history exists MMR Vaccines Completed 03/17/1997, 04/29/1993 Meningococcal ACWY Vaccine Completed 01/11/2010 HPV Vaccines Aged Out No longer eligi ble based on patient's age to complete this topic Hepatitis A Vaccines Aged Out No long er eligible based on patient's age to complete this topic Meningococcal B Vaccine Aged Out No l onger eligible based on patient's age to complete this topic Pneumococcal Vaccine: Pediatrics (0 to 5 Years) and At-Risk Patients (6 to 49 Years) Aged Out No longer eligible based on patient's age to complete this topic RSV Immunization Patients Under 20 months Aged Out No longer eligible based on patient's age to complete this topic Varicella Vaccines Aged Out No longer eligible based on patient's age to complete this topic Goals Goal Patient Goal Type Associated Problems Recent Progress Patient-Stated? Author LTG - 8 visits General No Natalya Wen, PT Note: Patient reports subjective decrease in low back pain Patient is able to achieve 50 degrees of lumbar flexion Patient is able to achieve equal lumbar side bending Slight myofascial restriction to bilateral erector spinae Negative L slump test Patient is able to achieve 4/5 TA strength Patient is independent and compliant with HEP Insurance [facility] Care Teams Special Delivery Clerk Relationship Specialty Start Date End Date Spring Barrera MD [address] [place] [id number] PCP - General Internal Medicine 04/18/14
[2025-05-02 20:05] VITALS: BP 129/68; PULSE 78; RESP 16; TEMP 36.6; O2SAT 97
[2025-05-02 20:36] VITALS: BP 129/68; PULSE 78; RESP 16; TEMP 36.6; O2SAT 97
== END 2025-05-02 20:38 | disposition home or self-care (01) ==
PROVIDERS: Emergency Provider Emergency Medicine; PCP Pediatrics
DX: S01.81XA Laceration without foreign body of other part of head, initial encounter (principal); X99.0XXA Assault by sharp glass, initial encounter; Y93.89 Activity, other specified; Y92.89 Other specified places as the place of occurrence of the external cause; Y99.9 Unspecified external cause status
CPT/HCPCS: 70450; 70486; 99283; 99284

== ENCOUNTER → 2025-05-02 18:01 | Outpatient (BNV) | payer SELFPAY | PROVIDERS: PCP Pediatrics; Visit Provider Specialist | DX: H05.221 Edema of right orbit (principal); S00.83XA Contusion of other part of head, initial encounter; X99.0XXA Assault by sharp glass, initial encounter | CPT/HCPCS: 70450; 70486 ==